=== PATIENT | male | born 1975 | race Caucasian/White ===

== ENCOUNTER 2023-04-15 10:06 | Emergency (ER) | payer OTHER ==
[~2023-04-15] VITALS: Ht 170.2 cm; Wt 70.3 kg
[2023-04-15] MEDS ORDERED: ACETAMINOPHEN 325 MG TABLET ONE (10:38)
[2023-04-15] MEDS ORDERED: ACETAMINOPHEN 325 MG TABLET PO ONE (11:00)
[2023-04-15] MEDS ORDERED: ONDANSETRON 4 MG TAB.RAPDIS SL ONE (12:00)
[2023-04-15] MEDS ORDERED: IBUPROFEN 600 MG TABLET PO ONE (12:00)
[2023-04-15] MEDS ORDERED: ONDANSETRON 4 MG TAB.RAPDIS ONE (12:10)
[2023-04-15] MEDS ORDERED: IBUPROFEN 600 MG TABLET ONE (12:10)
[2023-04-15] MEDS ORDERED: CYCL5TAB PO (12:15)
[2023-04-15] MEDS ORDERED: IBUP-1955 PO (12:15)
[2023-04-15 12:22] VITALS: BP 111/84; TEMP 98; O2SAT 99
== END 2023-04-15 12:23 | disposition home or self-care (01) ==
LOC: ER 10:06
DX: S13.4XXA Sprain of ligaments of cervical spine, initial encounter (principal); S16.1XXA Strain of muscle, fascia and tendon at neck level, initial encounter; S09.8XXA Other specified injuries of head, initial encounter; R11.2 Nausea with vomiting, unspecified; V43.52XA Car driver injured in collision with other type car in traffic accident, initial encounter; Y93.89 Activity, other specified; Y92.89 Other specified places as the place of occurrence of the external cause; Y99.8 Other external cause status
CPT/HCPCS: 99284; 72125; 70450; Q0162